=== PATIENT | male | born 2005 | race Caucasian/White ===

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

== ENCOUNTER 2024-08-08 19:09 | Emergency (ER) | payer OTHER, SELFPAY ==
--- NOTE | 2024-08-08 19:06 | ECG_ITS ---
APPROVED REPORT Exam: Resting ECG HR:72 bpm ECG Measurements Heart Rate 72 AXES AR 146 P 48 QRSd 88 QRS 65 QT 342 T 16 QTc 366 Conclusion SINUS RHYTHM WITH MARKED SINUS ARRHYTHMIA NONSPECIFIC T-WAVE ABNORMALITY Electronically signed by : NAOMI GARCIA, 08/08/2024 23:28:35
[2024-08-08 19:11] VITALS: BP 155/76; PULSE 76; RESP 22; TEMP 36.8; O2SAT 100; BMI 27.8
--- NOTE | 2024-08-08 19:13 | HMH.EDGENADL ---
Discharge Plan Disposition Patient Disposition: Home, Self-Care Condition: Good Prescriptions Prescriptions: No Action No Known Home Medications Referrals Follow up/Referrals: Teto Vargas II, MD [Staff Physician, Gastroenterology] - See instructions Richard Dhaliwal DO [Staff Physician, Family Practice] - See instructions Provider,Maricruz Soto [Primary Care Provider, Unknown] - See instructions Regis Hernandez MD [Staff Physician, Cardiology] - See instructions Activity Restrictions/Add. Instructions Additional Instructions/Restrictions: I have referred you to both gastroenterology and cardiology. You can call on Sunday to make your appointment. If you have any persistent new or worsening signs or symptoms follow-up with your PCP return to the ER as needed. I have given you the name of the local PCP if you do not have 1. Clinical Impressions Clinical Impression: Chest pain Qualifiers: Chest pain type: unspecified Qualified Code(s): R07.9 - Chest pain, unspecified Print Language Print Language: Ivorian Discharge ED Provider: Giuseppe Lujan General Adult HPI <MCKENZIE Rucker - Last Filed: 08/08/24 22:10> General Chief complaint: Chest Pain Stated complaint: chest pain Time Seen by Provider: 08/08/24 19:13 History of Present Illness HPI narrative: Patient is a 19-year-old male presents to the emergency department for evaluation of chest pain. Chest pain started approximately 30 minutes prior to arrival. He states it is located in the center of his chest and radiates down his left arm. He also reports difficulty breathing but denies fever chills hemoptysis hematochezia melena nausea vomiting or diarrhea. Patient is generally well has no chronic medical conditions and is on no home medications. He does not smoke or vape drink caffeinated beverages or energy drinks. Related Data Home Medications ?Medication ?Instructions ?Recorded ?Confirmed No Known Home Medications 01/23/24 01/23/24 Allergies Allergy/AdvReac Type Severity Reaction Status Date / Time No Known Allergies Allergy Verified 01/23/24 08:17 PFSH <MCKENZIE Rucker - Last Filed: 08/08/24 22:10> [facility] Disclaimer: The information contained in this section may have been updated after the patient was seen, as this information can be updated by other users. Surgical History History of tonsillectomy Family History Other Hypertension Social History Smoking Status: Never smoker alcohol intake: never substance use type: denies use current occupational status: employed Travel in the last 8 weeks?: None Have you lived/traveled outside [place] in past 30 days?: No Contact w/someone who lives/traveled outside US past 30 days?: No Exposure to someone with infectious disease in past 14 days?: No Do you have a fever (greater than 100.4 F or 38 C)?: No Have you tested positive for COVID-19?: No Exposed to someone with COVID-19 in past 14 days?: No Do you have a sore throat?: No Do you have a cough?: No Do you have any weakness?: No Do you have any diarrhea?: No Are you experiencing any unusual bleeding?: No Do you have any muscle aches/pain?: No Do you have any abdominal pain?: No Are you experiencing loss of taste or smell?: No <MCKENZIE Rucker - Last Filed: 08/08/24 22:10> ROS Obtained: Yes Systems reviewed as appropriate & no additional complaints except as documented Physical Exam <MCKENZIE Rucker - Last Filed: 08/08/24 22:10> General General appearance: alert and in no apparent distress Chest Chest inspection: Present symmetric chest wall rise Respiratory Respiratory exam: Present normal lung sounds bilaterally Cardiovascular Cardiovascular exam: Present regular rate; Absent normal heart sounds Neurological Exam Neurological exam: Present alert and oriented X3 Medical Decision Making <MCKENZIE Rucker - Last Filed: 08/08/24 22:10> Medical Records Medical records reviewed: Yes I reviewed the patient's medical records. Screening: Per USPSTF and CDC recommendations, given the prevalence of disease in our region, it is our hospital?s policy to screen for HIV and viral Hepatitis for all patients aged 18 and over and those with ongoing risk factors. Pankaj Inquiry Pt receiving controlled substance: No Vital Signs: 08/08/24 19:11 08/08/24 20:00 08/08/24 20:30 Temperature 98.3 F Temperature Source Oral Pulse Rate 60 59 L Pulse Rate [Left] 76 Respiratory Rate 22 17 15 Blood Pressure 126/70 118/70 Blood Pressure [Right Arm] 155/76 H Blood Pressure Mean [Right Arm] 102 Blood Pressure Source [Right Arm] Automatic Cuff Blood Pressure Position [Right Arm] Sitting 02 Sat by Pulse Oximetry 100 98 99 Oxygen Delivery Method Room Air 08/08/24 21:01 08/08/24 22:13 Temperature 98.1 F Temperature Source Pulse Rate 63 57 L Pulse Rate [Left] Respiratory Rate 15 14 Blood Pressure 114/63 123/68 Blood Pressure [Right Arm] Blood Pressure Mean [Right Arm] Blood Pressure Source [Right Arm] Blood Pressure Position [Right Arm] 02 Sat by Pulse Oximetry 98 Oxygen Delivery Method Room Air Lab Data Lab results reviewed: Yes I reviewed the patient's lab results. Lab Results 08/08/24 19:10: WBC 4.6, RBC 5.48, Hgb 15.8, Hct 45.9, MCV 83.8, MCH 28.8, MCHC 34.4, RDW 11.4 L, Plt Count 255, MPV 11.4 H, Neut % (Auto) 43.7, Lymph % (Auto) 45.3, [place] % (Auto) 7.7, Eos % (Auto) 2.4, Baso % (Auto) 0.7, Neut # (Auto) 2.0, Lymph # (Auto) 2.1, [place] # (Auto) 0.4, Eos # (Auto) 0.1, Baso # (Auto) 0.0, ESR 3, D-Dimer 0.42, Sodium 139, Potassium 3.8, Chloride 102, Carbon Dioxide 26, Anion Gap 14.8, BUN 13, Creatinine 0.90, Estimated Creat Clear 168, Estimated GFR 108, Est GFR ( Amer) 130, Glucose 105 H, Calcium 11.4 H, Magnesium 2.3, Total Bilirubin 0.6, AST 48, ALT 85 H, Alkaline Phosphatase 86, Troponin I < 0.01, C-Reactive Protein 0.6, Total Protein 8.4 H, Albumin 5.6 H, Globulin 2.8, Albumin/Globulin Ratio 2.0 H, Lipase 74 08/08/24 22:16: Troponin I < 0.01 08/08/24 19:10 08/08/24 19:10 Orders (Tests/Meds): ED MEDICATIONS Discontinued Medications Generic Name Dose Route Start Last Admin Trade Name Armando PRN Reason Stop Dose Admin Acetaminophen 1,000 mg 08/08/24 19:28 08/08/24 19:44 Acetaminophen 500mg Tab PO 08/08/24 19:29 1,000 mg ONCE ONE Administration Belladonna Alkaloids 60 ml 08/08/24 19:28 08/08/24 19:44 Belladonna Alkaloids 60 Ml Ml PO 08/08/24 19:29 60 ml ONCE ONE Administration Ketorolac Tromethamine 15 mg 08/08/24 19:28 08/08/24 19:44 Ketorolac 30mg/Ml Vial IV 08/08/24 19:29 15 mg ONCE ONE Administration Ondansetron HCl 4 mg 08/08/24 19:28 08/08/24 19:45 Ondansetron 4mg/2ml Vial IV 08/08/24 19:29 4 mg ONCE ONE Administration ORDERS Category Date Time Status Chest XR 2 view (NOT portable) [XR chest 2V] Stat Exams 08/08/24 19:28 Completed CBC w/Auto Diff [Complete Blood Count Auto Diff] Stat Lab 08/08/24 19:10 Completed CMP [Comprehensive Metabolic Panel] Stat Lab 08/08/24 19:10 Completed CRP [C-Reactive Protein] Stat Lab 08/08/24 19:10 Completed D-Dimer Stat Lab 08/08/24 19:10 Completed ESR [Erythrocyte Sedimentation Rate] Stat Lab 08/08/24 19:10 Completed Lipase Stat Lab 08/08/24 19:10 Completed Magnesium Stat Lab 08/08/24 19:10 Completed Trop I [Troponin I] Stat Lab 08/08/24 19:10 Completed Troponin I Q3H Lab 08/08/24 22:16 Completed HEART Score History (anamnesis): Slightly suspicious ECG: Normal Age: <45 years Risk factors: No known risk factors Troponin: </= normal limit HEART Score: 0 Medical Decision Narrative: In summary patient is a 19-year-old male who presents to the emergency department for evaluation of chest pain. Patient is hemodynamically stable with a blood pressure 155/76 heart rate 76 with sinus rhythm on the bedside monitor breathing 22 times minute satting at 100% on room air upon arrival, afebrile at 98.3. Physical exam is remarkable for well-nourished well-developed 19-year-old gentleman who is otherwise in no acute distress. Breath sounds clear and equal bilaterally to the bases without adventitious sounds cardiovascular's S1 is 2 regular rate and rhythm without murmurs gallops rubs or thrills, there is no reproducible chest pain on palpation, abdomen soft nontender no rebound or guarding no rigidity.. Differential diagnosis includes ACS versus PE versus esophageal spasm versus GERD etc. Initial workup will be conducted with hematologic labs plain film chest x-ray. Initial interventions include Tylenol Toradol Zofran and GI cocktail. Initial workup reviewed by me and his hematologic labs are nonactionable including undetectable initial troponin and my informed interpretation of his imaging shows no acute processes prior to radiology read. Please see final read from interpretation. Upon repeat evaluation patient reports that his pain is now 0 and he has no symptoms currently. Given this The patient was placed in observation status at 2000 hrs. Medical necessity for observational status is serial troponins. The patient was provided serial reevaluations and continuous cardiac monitoring pulse oximetry while awaiting results. Second troponin is also undetectable. Because of the results I feel the patient can discharge with referral to gastroenterology as patient received significant relief with GI cocktail as well as cardiology for restratification. Total time in observation was 2 hours. <Giuseppe Lujan MD - Last Filed: 08/08/24 23:23> Vital Signs: 08/08/24 19:11 08/08/24 20:00 08/08/24 20:30 Temperature 98.3 F Temperature Source Oral Pulse Rate 60 59 L Pulse Rate [Left] 76 Respiratory Rate 22 17 15 Blood Pressure 126/70 118/70 Blood Pressure [Right Arm] 155/76 H Blood Pressure Mean [Right Arm] 102 Blood Pressure Source [Right Arm] Automatic Cuff Blood Pressure Position [Right Arm] Sitting 02 Sat by Pulse Oximetry 100 98 99 Oxygen Delivery Method Room Air 08/08/24 21:01 08/08/24 22:13 Temperature 98.1 F Temperature Source Pulse Rate 63 57 L Pulse Rate [Left] Respiratory Rate 15 14 Blood Pressure 114/63 123/68 Blood Pressure [Right Arm] Blood Pressure Mean [Right Arm] Blood Pressure Source [Right Arm] Blood Pressure Position [Right Arm] 02 Sat by Pulse Oximetry 98 Oxygen Delivery Method Room Air Lab Data Lab Results 08/08/24 19:10: WBC 4.6, RBC 5.48, Hgb 15.8, Hct 45.9, MCV 83.8, MCH 28.8, MCHC 34.4, RDW 11.4 L, Plt Count 255, MPV 11.4 H, Neut % (Auto) 43.7, Lymph % (Auto) 45.3, [place] % (Auto) 7.7, Eos % (Auto) 2.4, Baso % (Auto) 0.7, Neut # (Auto) 2.0, Lymph # (Auto) 2.1, [place] # (Auto) 0.4, Eos # (Auto) 0.1, Baso # (Auto) 0.0, ESR 3, D-Dimer 0.42, Sodium 139, Potassium 3.8, Chloride 102, Carbon Dioxide 26, Anion Gap 14.8, BUN 13, Creatinine 0.90, Estimated Creat Clear 168, Estimated GFR 108, Est GFR ( Amer) 130, Glucose 105 H, Calcium 11.4 H, Magnesium 2.3, Total Bilirubin 0.6, AST 48, ALT 85 H, Alkaline Phosphatase 86, Troponin I < 0.01, C-Reactive Protein 0.6, Total Protein 8.4 H, Albumin 5.6 H, Globulin 2.8, Albumin/Globulin Ratio 2.0 H, Lipase 74 08/08/24 22:16: Troponin I < 0.01 Orders (Tests/Meds): ED MEDICATIONS Discontinued Medications Generic Name Dose Route Start Last Admin Trade Name Freq PRN Reason Stop Dose Admin Acetaminophen 1,000 mg 08/08/24 19:28 08/08/24 19:44 Acetaminophen 500mg Tab PO 08/08/24 19:29 1,000 mg ONCE ONE Administration Belladonna Alkaloids 60 ml 08/08/24 19:28 08/08/24 19:44 Belladonna Alkaloids 60 Ml Ml PO 08/08/24 19:29 60 ml ONCE ONE Administration Ketorolac Tromethamine 15 mg 08/08/24 19:28 08/08/24 19:44 Ketorolac 30mg/Ml Vial IV 08/08/24 19:29 15 mg ONCE ONE Administration Ondansetron HCl 4 mg 08/08/24 19:28 08/08/24 19:45 Ondansetron 4mg/2ml Vial IV 08/08/24 19:29 4 mg ONCE ONE Administration ORDERS Category Date Time Status Chest XR 2 view (NOT portable) [XR chest 2V] Stat Exams 08/08/24 19:28 Completed CBC w/Auto Diff [Complete Blood Count Auto Diff] Stat Lab 08/08/24 19:10 Completed CMP [Comprehensive Metabolic Panel] Stat Lab 08/08/24 19:10 Completed CRP [C-Reactive Protein] Stat Lab 08/08/24 19:10 Completed D-Dimer Stat Lab 08/08/24 19:10 Completed ESR [Erythrocyte Sedimentation Rate] Stat Lab 08/08/24 19:10 Completed Lipase Stat Lab 08/08/24 19:10 Completed Magnesium Stat Lab 08/08/24 19:10 Completed Trop I [Troponin I] Stat Lab 08/08/24 19:10 Completed Troponin I Q3H Lab 08/08/24 22:16 Completed HEART Score HEART Score: 0 Medical Decision Narrative: In summary patient is a 19-year-old male who presents to the emergency department for evaluation of chest pain. Patient is hemodynamically stable with a blood pressure 155/76 heart rate 76 with sinus rhythm on the bedside monitor breathing 22 times minute satting at 100% on room air upon arrival, afebrile at 98.3. Physical exam is remarkable for well-nourished well-developed 19-year-old gentleman who is otherwise in no acute distress. Breath sounds clear and equal bilaterally to the bases without adventitious sounds cardiovascular's S1 is 2 regular rate and rhythm without murmurs gallops rubs or thrills, there is no reproducible chest pain on palpation, abdomen soft nontender no rebound or guarding no rigidity.. Differential diagnosis includes ACS versus PE versus esophageal spasm versus GERD etc. Initial workup will be conducted with hematologic labs plain film chest x-ray. Initial interventions include Tylenol Toradol Zofran and GI cocktail. Initial workup reviewed by me and his hematologic labs are nonactionable including undetectable initial troponin and my informed interpretation of his imaging shows no acute processes prior to radiology read. Please see final read from interpretation. Upon repeat evaluation patient reports that his pain is now 0 and he has no symptoms currently. Given this The patient was placed in observation status at 2000 hrs. Medical necessity for observational status is serial troponins. The patient was provided serial reevaluations and continuous cardiac monitoring pulse oximetry while awaiting results. Second troponin is also undetectable. Because of the results I feel the patient can discharge with referral to gastroenterology as patient received significant relief with GI cocktail as well as cardiology for restratification. Total time in observation was 2 hours. I was consulted by the KERMIT, and we discussed the complexity of the problems being addressed.I approved the treatment and management plan for this patient?s care in the Emergency Department, thus performing a substantive portion of the medical decision making.Signed, Giuseppe Lujan MD [facility] <MCKENZIE Rucker - Last Filed: 08/08/24 22:10> Critical Care Time Critical Care Time: No
--- NOTE | 2024-08-08 19:28 | XR_ITS ---
PROCEDURE INFORMATION: Exam: XR Chest Exam date and time: 08/08/2024 7:27 PM Age: 19 years old Clinical indication: Dyspnea; Additional info: Chest pain and dyspnea TECHNIQUE: Imaging protocol: Radiologic exam of the chest. Views: 2 views. COMPARISON: CR XR CHEST 2V 03/22/2021 1:34 PM FINDINGS: Lungs: Unremarkable. No consolidation. Pleural spaces: Unremarkable. No pleural effusion. No pneumothorax. Heart/Mediastinum: Unremarkable. No cardiomegaly. Bones/joints: Unremarkable. IMPRESSION: No acute findings.
[2024-08-08 19:41] LABS: Alanine Aminotransferase 85 U/L (12-78); Albumin Level 5.6 g/dl (3.5-5.0); Alkaline Phosphatase 86 U/L (38-126); Anion Gap 14.8 mEq/L (5-15); Aspartate Amino Transferase 48 U/L (17-59); Bilirubin,Total 0.6 mg/dl (0.2-1.3); Blood Urea Nitrogen 13 mg/dl (9-20); Calcium 11.4 mg/dl (8.4-10.2); Carbon Dioxide 26 mmol/L (22.0-30.0); Chloride 102 mmol/L (98-107); Creatinine Clearance Estimated 168 mL/min (50-200); Estimated Glomerular Filt Rate 108 ml/min (>60); GFR (African American) 130 ML/MIN (>60); Globulin 2.8 g/dL (1.3-3.2); Glucose 105 mg/dl (74-100); Lipase 74 U/L (23-300); Magnesium 2.3 mg/dl (1.6-2.3); Potassium 3.8 mmoL/L (3.5-5.1); Sodium 139 mmol/L (136-145); Total Protein,Serum 8.4 g/dl (6.3-8.2)
[2024-08-08] MEDS: BELLADONNA ALKALOIDS 60 ML ML PO (19:44)
[2024-08-08] MEDS: ACETAMINOPHEN 500MG TAB 1000 MG PO (19:44)
[2024-08-08] MEDS: KETOROLAC 30MG/ML VIAL 15 MG IV (19:44)
[2024-08-08] MEDS: ONDANSETRON 4MG/2ML VIAL 4 MG IV (19:45)
[2024-08-08 19:46] LABS: C-Reactive Protein 0.6 mg/L (0-4); D-Dimer 0.42 ug/mL (0.0-0.5)
[2024-08-08 19:50] LABS: Basophils % 0.7 % (0.1-2.0); Eosinophils # 0.1 Kmm3 (0.0-0.4); Eosinophils % 2.4 % (0.1-12.0); Hematocrit 45.9 % (42.0-52.0); Hemoglobin 15.8 g/dL (14.1-18.0); Immature Granulocytes # 0.01 10^3uL; Immature Granulocytes % 0.2 %; Lymphocytes # 2.1 K/mm3 (0.7-4.5); Lymphocytes % 45.3 % (10-50); Mean Corpuscular HGB Conc 34.4 g/dL (31.8-35.4); Mean Corpuscular Hemoglobin 28.8 pg (27.0-31.2); Mean Corpuscular Volume 83.8 fl (80-94); Mean Platelet Volume 11.4 fl (7.4-10.4); Monocytes # 0.4 K/mm3 (0.1-1.0); Monocytes % 7.7 % (1.7-9.3); Neutrophils % 43.7 % (37.0-80.0); Nucleated Red Blood Cells # 0 10^3/uL; Nucleated Red Blood Cells % 0 %; Platelet Count 255 K/mm3 (142-424); Red Blood Count 5.48 M/mm3 (4.60-6.20); Red Cell Distribution Width 11.4 % (11.5-17.5); Red Cell Distribution Width-SD 34.5 fL; White Blood Count 4.6 K/mm3 (4.5-13.0)
[2024-08-08 19:56] LABS: Troponin I < 0.01 ng/ml (0.00-0.034)
[2024-08-08 20:00] VITALS: BP 126/70; PULSE 60; RESP 17; O2SAT 98
[2024-08-08 20:30] VITALS: BP 118/70; PULSE 59; RESP 15; O2SAT 99
[2024-08-08 20:47] LABS: Erythrocyte Sedimentation Rate 3 mm/hr (0-15)
[2024-08-08 21:01] VITALS: BP 114/63; PULSE 63; RESP 15; O2SAT 98
[2024-08-08 22:13] VITALS: BP 123/68; PULSE 57; RESP 14; TEMP 36.7; O2SAT 98
[2024-08-08 22:45] LABS: Troponin I < 0.01 ng/ml (0.00-0.034)
== END 2024-08-08 22:26 | disposition home or self-care (01) ==
PROVIDERS: Physician Assistant; Emergency Provider Emergency Medicine
DX: R07.9 Chest pain, unspecified (principal)
CPT/HCPCS: 71046; 80053; 83690; 83735; 84484; 85025; 85378; 85651; 86140; 93005; 96374; 96375; 99285; J1885; J2405